=== PATIENT | female | born 1935 | race Two or more races ===

== ENCOUNTER 2024-10-21 19:45 | Emergency (ER) | payer SELFPAY ==
[~2024-10-21] VITALS: Ht 167.6 cm; Wt 55.0 kg
[2024-10-21 19:49] VITALS: BP 143/82; PULSE 95; RESP 18; TEMP 98.5; O2SAT 99
[2024-10-21] MEDS ORDERED: LIDO700A15 TP (20:53)
[2024-10-21] MEDS ORDERED: TOPUD PO (20:53)
[2024-10-21] MEDS ORDERED: LIDOCAINE 5% PATCH TOP SCH (21:00)
[2024-10-21] MEDS ORDERED: ACETAMINOPHEN 325MG TABLET PO ONE (21:00)
== END 2024-10-21 23:20 | disposition home or self-care (01) ==
LOC: ER 19:45
DX: R07.89 Other chest pain (principal); M54.9 Dorsalgia, unspecified; Z88.0 Allergy status to penicillin
CPT/HCPCS: 71101; 99283